=== PATIENT | male | born 1980 | race Caucasian/White ===

== ENCOUNTER 2023-03-20 02:50 | Inpatient (IN) | payer SELFPAY ==
[~2023-03-20] VITALS: Ht 180.3 cm; Wt 129.3 kg
[2023-03-20] VITALS (16 sets, daily range): BP systolic 92–130; BP diastolic 46–79
--- NOTE | 2023-03-20 02:52 | NUR ---
blood sugar checked 355
--- NOTE | 2023-03-20 02:52 | NUR ---
Dr. Garcia examining patient.
--- NOTE | 2023-03-20 02:56 | NUR ---
Patient BIB by ALS from home. C/O Alcohol intoxication x today. Per reported, patient was drinking all day (unknown consuming), At the scence, patient vomiting, tachycardia 134, diaphoretic, Given Zofran 4 mg IV push and NSS Bolus. PMHx: Alcoholic
--- NOTE | 2023-03-20 02:56 | NUR ---
PT RICKI ALS. TAKEN TO BED 4
[2023-03-20] MEDS ORDERED: PANTOPRAZOLE 40 MG INJ VIAL IVP ONE (03:00)
[2023-03-20] MEDS ORDERED: NACL 0.9% 1,000 ML IV ONE (03:00)
[2023-03-20] MEDS ORDERED: OCTREOTIDE ACETATE 100 MCG/ML VIAL IV STA (03:07)
[2023-03-20] MEDS ORDERED: OCTREOTIDE ACETATE 1.25 MG in NACL 0.9% 250 ML IV SCH (03:10)
[2023-03-20] MEDS ORDERED: cefTRIAXone 1,000 MG VIAL ONE (03:15)
[2023-03-20 03:20] LABS: BASOPHILS # (AUTO) 0.1 K/uL (0.00-0.22); BASOPHILS % (AUTO) 0.6 % (0.0-2.0); EOSINOPHILS % (AUTO) 0.1 % (0.0-4.0); HEMOGLOBIN 7.3 g/dL (12.0-18.0); LYMPHOCYTES # (AUTO) 3.2 K/uL (2.0-11.5); LYMPHOCYTES % (AUTO) 21.9 % (20.5-51.1); MEAN CORPUSCULAR HEMOGLOBIN 29 pg (27-31); MEAN CORPUSCULAR HGB CONC 32 g/dL (33-37); MEAN CORPUSCULAR VOLUME 92.3 fL (80-94); MONOCYTES % (AUTO) 6.8 % (1.7-9.3); NEUTROPHILS # (AUTO) 10.2 K/uL (1.8-7.7); NEUTROPHILS % (AUTO) 70.6 % (42.2-75.2); PLATELET COUNT (AUTO) 158 K/uL (140-450); RED BLOOD CELL COUNT(AUTO) 2.49 MIL/uL (4.20-6.10); RED CELL DISTRIBUTION WIDTH 16.7 % (11.6-13.7); WHITE BLOOD COUNT (AUTO) 14.5 K/uL (4.8-10.8)
[2023-03-20] MEDS ORDERED: OCTREOTIDE ACETATE 1000 MCG/5 ML VIAL ONE (03:25)
--- NOTE | 2023-03-20 03:27 | NUR ---
COVID SWAB WALKED TO LAB.
--- NOTE | 2023-03-20 03:45 | NUR ---
Pt said that he doesnt take medications at home
[2023-03-20 03:46] LABS: PROTHROMBIN TIME 15.6 secs (10.8-13.4)
--- NOTE | 2023-03-20 03:48 | NUR ---
X-Ray at bedside.
--- NOTE | 2023-03-20 03:50 | NUR ---
spoke to Dr Lucas for updating the patient information.
--- NOTE | 2023-03-20 03:53 | NUR ---
blood transufsion is started
--- NOTE | 2023-03-20 03:55 | NUR ---
Consent signed per patient agreeing to administration of blood. Blood has been type and crossmatched. Blood sent from blood bank. Information on unit of blood checked against patient wristband at bedside by two nurses. All information matches. Patient or responsible alliance party informed of potential complications associated with blood transfusion. Informed of possible transfusion reaction symptoms. Aware of need to notify nurse at once of itching, shortness of breath, flushing, feeling of impending doom, or other symptoms not previously present. Vital signs taken within 5 minutes prior to initiation of transfusion. RN will remain with patient for first 15 minutes of transfusion at which time vital signs will be re-assessed.
[2023-03-20] MEDS: NACL 0.9% 1,000 ML IV SCH ×2 (04:00→14:13)
[2023-03-20] MEDS ORDERED: NOREPINEPHRINE 4 MG in DEXTROSE 5% 250 ML IV PRN (04:00)
[2023-03-20 04:27] LABS: ALBUMIN 2.1 g/dL (3.4-5.0); ASPARTATE AMINOTRANSFERASE 36 U/L (15-37); CARBON DIOXIDE 17.9 mmol/L (21-32); CHLORIDE 107 mmol/L (98-107); CREATININE 1.1 mg/dL (0.6-1.3); GFR ARICAN-AMERICAN 94 mL/min (>90); LIPASE 75 U/L (73-393); POTASSIUM 3.9 mmol/L (3.5-5.1); SODIUM SERUM 142 mmol/L (136-145); TOTAL BILIRUBIN 1.7 mg/dL (0.0-1.0); UREA NITROGEN, BLOOD 21 mg/dL (7-18)
[2023-03-20 04:32] LABS: GLUCOSE 428 mg/dL (74-106)
--- NOTE | 2023-03-20 04:57 | NUR ---
[facility] Admited to [facility]. Will go to room 2. Belongings list completed. Report to addie.
--- NOTE | 2023-03-20 05:17 | NUR ---
RECEIVED PT. FROM ER AT 0440 AND REPORT GIVEN BY AZAM LO. PT. WIDE AWAKE, ALERT AND DJIBOUTIAN SPEAKING ONLY. ABLE TO MOVE HIMSELF FROM THE GURNEY TO BED. ASSESSMENT DONE. BILATERAL LUNG SOUNDS CLEAR. ON NASAL CANULA 2L WITH O2 SAT 96%. EYES PERRLA. ABDOMEN ROUND AND NON TENDER. ABDOMINAL SOUNDS HYPOACTIVE. RECEIVED PT. FROM ER WITH 1 UNIT PRBC RUNNING 50ML/HR TO IV SITE RIGHT AC 18G AND 1 UNIT PRBC 50ML/HR TO RIGHT WRIST 20G AND SANDOSTATIN DRIP AT 50MCG/HR TO LEFT HAND 22G, INFUSING WELL. SINUS TACHYCARDIA 123-125 ON THE MONITOR. SKIN INTACT. ALL EXTREMITIES MODERATE WEAKNESS. ALL PULSES PALPABLE. PER BRANDS EDITOR DR. GORE ORDERED TO DO A BEDSIDE PROCEDURE, BUT BRANDS EDITOR NOT SURE IF WHAT WILL BE THE PROCEDURE. SENT A MESSAGE TO AND INFORMED HIM THAT PT. IS NOW IN ICU AND ASKED IF WHAT PROCEDURE HE PLAN TO DO. WILL WAIT FOR HIS CALL.PROVIDED PT. WITH SAFE AND QUIET ENVIRONMENT. BEDLOCK AND PLACED BED IN THE LOWEST HEIGHT FOR SAFETY.PT. PT. ABLE TO REPOSITION HIMSELF. PLACED CALL LIGHT WITHIN REACH. NO S/S OF RESPIRATORY DISTRESS AND NO S/S OF PAIN. WILL CONT. TO MONITOR.
--- NOTE | 2023-03-20 07:15 | NUR ---
RECEIVED BEDSIDE REPORT FROM DOUGH MOLDER RNMENDEZ FOR CONTINUITY OF CARE. PT ALERT AND ORIENTED. ROOM AIR, RESPIRATIONS EVEN AND UNLABORED. 20G IV TO R WRIST SALINE LOCK, 18G IV TO RAC SALINE LOCK, AND 22G IV TO L WRIST INFUSING OCTREOTIDE DRIP AT 10 ML/HR AND NS AT 100 ML/HR. ST ON MONITOR. VOIDS FREELY. BED LOCKED AND IN LOWEST POSITION. STANDARD PRECAUTION. CALL LIGHT WITHIN REACH.
[2023-03-20] MEDS ORDERED: BLOOD GLUCOSE MONITORING 1 DEV DEV FS SCH (07:30)
[2023-03-20] MEDS ORDERED: ONDANSETRON 4 MG/2 ML VIAL IVP PRN (07:40)
[2023-03-20] MEDS ORDERED: LORazepam 2 MG/ML VIAL IVP PRN (07:40)
[2023-03-20] MEDS ORDERED: ACETAMINOPHEN 325 MG TAB PO PRN (07:40)
[2023-03-20] MEDS ORDERED: ZOLPIDEM 5 MG TAB PO PRN (07:40)
[2023-03-20] MEDS ORDERED: MAG SULF 2000 MG/WATER PREMIX 50 ML IV PRN (07:40)
[2023-03-20] MEDS ORDERED: DOCUSATE SODIUM 100 MG GELCAP PO PRN (07:40)
[2023-03-20] MEDS ORDERED: POTASSIUM CHLORIDE 10 MEQ TABER PO PRN (07:40)
[2023-03-20] MEDS ORDERED: MORPHINE SULFATE 2 MG/ML SYR IVP PRN (07:40)
[2023-03-20] MEDS ORDERED: DEXTROSE 50% 50 ML SYR IVP PRN (07:45)
--- NOTE | 2023-03-20 07:49 | NUR ---
REPORT GIVEN TO AZAM POWELL FOR CONTINUITY OF CARE.
[2023-03-20] MEDS ORDERED: METOCLOPRAMIDE 10 MG/2 ML INJ VIAL IVP SCH ×2 (08:02→12:00)
--- NOTE | 2023-03-20 08:03 | NUR ---
UTILIZED VOYCE VIETNAMESE INTERPRETATION TO ASSESS PT AND EXPLAIN PLAN OF CARE. NO FURTHER QUESTIONS AT THIS TIME. BIOSOLIDS MANAGEMENT TECHNICIAN ID [id number].
[2023-03-20] MEDS: PANTOPRAZOLE 40 MG INJ VIAL IVP SCH ×2 (08:33→20:56)
[2023-03-20] MEDS: INSULIN LISPRO SLIDING SCALE 100 UNITS/ML VIAL SUBQ PRN ×3 (08:41→18:01)
--- NOTE | 2023-03-20 08:44 | NUR ---
PATIENT HAS BEEN SCREENED AND CATEGORIZED MODERATE NUTRITION RISK. PATIENT WILL BE SEEN WITHIN 3-5 DAYS OF ADMISSION. 03/20/23-03/25/[address] RE[address] BY [address]H QUINONES RD
[2023-03-20 10:34] LABS: HEMATOCRIT 23.7 % (36-52); HEMOGLOBIN 7.8 g/dL (12.0-18.0)
--- NOTE | 2023-03-20 11:00 | NUR ---
FAMILY AT BEDSIDE.
[2023-03-20] MEDS ORDERED: PROPOFOL 200 MG/20 ML VIAL IV ONE (11:31)
[2023-03-20] MEDS ORDERED: NOREPINEPHRINE 4 MG/4 ML VIAL IV ONE (11:31)
[2023-03-20 11:35] LABS: MAGNESIUM 1.3 mg/dL (1.8-2.4); PHOSPHORUS 2.5 mg/dL (2.5-4.9); POTASSIUM 4.6 mmol/L (3.5-5.1)
--- NOTE | 2023-03-20 11:44 | NUR ---
DC PLANNING A CASE OF 43 YEAR OLD MALE PATIENT ADMITTED FOR ACUTE GI BLEED WITH NO PRIMARY HX WITH COMPLAINTS OF NAUSEA,BLOODY EMESIS AND DIARRHEA.ON OCTREOTIDE DRIP.2 UNITS PRBC TRANSFUSED FOR HBG 7.3.PULMO AND GI FOLLOWING.FOR EGD TODAY. DC PLAN - HOME WHEN PATIENT RESPONDS TO TX.CM TO FOLLOW. Addendum: 03/21/23 at 1100 by HERNAN CHARLES CM DC PLANNING EGD DONE 03/20 BUT UNABLE TO FIND THE SOURCE OF BLEEDING DUE TO MULTIPLE LARGE CLOTS PER GI.FOR REPEAT EGD TODAY.CBC PENDING.HAD TOTAL 5 UNITS PRBC.PATIENT IS ALERT AND ORIENTED BUT STILL HAVING BLOODY EMESIS.CM TO FOLLOW.H Addendum: 03/21/23 at 1653 by Tea Meeks RN DC PLANNING: PATIENT HAS AN ORDER TO GO TO HIGHER LEVEL OF CARE FOR IR SERVICE FOR EMBOLIZATION. FAXED TO [facility]. PATIENT HAS SELF PAY AWAITING FOR [employer] DROP COUNT ASSOCIATE TO APPLY FOR MEDICAL . CM TO FOLLOW
[2023-03-20] MEDS: BLOOD GLUCOSE MONITORING 1 DEV DEV FS SCH ×2 (12:21→17:58)
[2023-03-20 12:45] LABS: ANION GAP 14.3 (8-16); CARBON DIOXIDE 20.3 mmol/L (21-32); CREATININE 1.1 mg/dL (0.6-1.3); POTASSIUM 4.6 mmol/L (3.5-5.1)
--- NOTE | 2023-03-20 12:55 | NUR ---
DC PLANNING ASSESSMENT COMPLETE PLEASE REFER TO ASSESSMENT FOR ADDITIONAL DETAILS PT REPORTS DC PLAN IS TO RETURN HOME, WITH FRIEND PROVIDING TRANSPORTATION, WHEN MEDICALLY STABLE. Addendum: 03/20/23 at 1256 by Solomon FARAH Amended: Links added.
--- NOTE | 2023-03-20 13:03 | NUR ---
RECEIVED RETURN PAGE FROM DR. GORE. NOTIFIED OF NEWLY RESULTED HGB OF 7.8. ADVISED TO HOLD PRBC FOR NOW. PHYSICIAN TO SEE PT.
[2023-03-20 14:00] LABS: APPEARANCE,URINE CLEAR (CLEAR); BILIRUBIN,URINE NEGATIVE (NEGATIVE); BLOOD, URINE 1+ (NEGATIVE); COLOR,URINE YELLOW (YELLOW); LEUKOCYTE ESTERASE ,URINE NEGATIVE (NEGATIVE); NITRITE, URINE NEGATIVE (NEGATIVE); UGLUCOSE 2+ (NEGATIVE)
--- NOTE | 2023-03-20 14:03 | NUR ---
UTILIZED VOE INTERPRETATION TO UPDATE PT ON PLAN OF CARE. EXTERNAL RELATIONS DIRECTOR ID [id number].
--- NOTE | 2023-03-20 14:10 | NUR ---
UTILIZED [facility] INTERPRETATION SERVICES TO COMPLETE MEDICATION RECONCILIATION. PT DENIES ANY HOME MEDICATIONS. NO FURTHER QUESTIONS AT THIS TIME.
[2023-03-20 14:14] LABS: BARBITURATE, URINE NEGATIVE ng/ml (NEG <=200); BENZODIAZEPINE, URINE NEGATIVE ng/mL (NEG <=200); CANNABINOID, URINE NEGATIVE ng/mL (NEG <=50); COCAINE, URINE NEGATIVE ng/mL (NEG <=300); OPIATE, URINE NEGATIVE ng/mL (NEG <=2000); PHENCYCLIDINE SCREEN,URINE NEGATIVE ng/mL (NEG <=25)
[2023-03-20 14:19] LABS: WBC,URINE 0-5 /HPF (0-5)
--- NOTE | 2023-03-20 14:22 | NUR ---
PT TRANSPORTED TO GI LAB WITH OR NURSES. Addendum: 03/20/23 at 1628 by Dayan Jackson RN TIME SHOULD BE [id number]
[2023-03-20 15:21] LABS: RED BLOOD CELL COUNT(AUTO) 2.66 MIL/uL (4.20-6.10); WHITE BLOOD COUNT (AUTO) 15.8 K/uL (4.8-10.8)
[2023-03-20 15:22] LABS: HEMATOCRIT 23.9 % (36-52); HEMOGLOBIN 7.7 g/dL (12.0-18.0); LYMPHOCYTES % (AUTO) 14.5 % (20.5-51.1); MEAN CORPUSCULAR HEMOGLOBIN 30 pg (27-31); MEAN CORPUSCULAR HGB CONC 33 g/dL (33-37); MEAN CORPUSCULAR VOLUME 89.9 fL (80-94); NEUTROPHILS % (AUTO) 78.3 % (42.2-75.2); PLATELET COUNT (AUTO) 144 K/uL (140-450); RED CELL DISTRIBUTION WIDTH 15.6 % (11.6-13.7)
[2023-03-20 15:23] LABS: BASOPHILS # (AUTO) 0.1 K/uL (0.00-0.22); BASOPHILS % (AUTO) 0.4 % (0.0-2.0); LYMPHOCYTES # (AUTO) 2.3 K/uL (2.0-11.5); MONOCYTES # (AUTO) 1.1 K/uL (0.8-1.0); MONOCYTES % (AUTO) 6.8 % (1.7-9.3); NEUTROPHILS # (AUTO) 12.4 K/uL (1.8-7.7)
[2023-03-20] MEDS ORDERED: fentaNYL citrate 0.05 MG/ML VIAL ONE (15:43)
[2023-03-20] MEDS ORDERED: MIDAZOLAM 2 MG/2 ML VIAL ONE (15:43)
[2023-03-20] MEDS ORDERED: LIDOCAINE 2% 100 MG/5 ML UJET TP ONE (16:24)
--- NOTE | 2023-03-20 16:56 | NUR ---
PT RETURNED FROM GI LAB WITH NGT AND UNIT PRBC INFUSING. DR. GORE ORDERED TO PLACE NGT TO LOW INTERMITTENT SUCTION AND FLUSH WITH 500 ML NORMAL SALINE Q2H. CONTINUE OCTREOTIDE DRIP AT 10 ML/HR. INFUSE ONE MORE UNIT PRBC WHEN CURRENT UNIT FINISHES.
[2023-03-20] MEDS ORDERED: MIDAZOLAM 2 MG/2 ML VIAL IVP ONE (17:00)
[2023-03-20] MEDS: OCTREOTIDE ACETATE 1.25 MG in NACL 0.9% 250 ML IV SCH (17:11)
--- NOTE | 2023-03-20 19:20 | NUR ---
ENDORSED BEDSIDE REPORT TO PROGRAMMING SPECIALIST AZAM BROOKS FOR CONTINUITY OF CARE
--- NOTE | 2023-03-20 19:25 | NUR ---
TRANSFER OF CARE FROM DAY SHIFT, REPORT RECEIVED FROM Swathi POWELL RN. PATIENT RECEIEVED AWAKE AND ALERT X4; PATIENT SPEAKS FRENCH. PATIENT IS LYING IN BED ON LEFT SIDE. PATIENT HAS 18G IN THE RIGHT AC, AND 22G IN THE LEFT WRIST. PATIENT IS CURRENTLY RECEIVING BLOOD TRANSFUSION, ALSO HAS THE FOLLOWING MEDICATIONS INFUSING: NORMAL SALINE AT 100ML/HR, AND OCTREOTIDE AT 10ML/HR. PATIENT IS ABLE TO AMBULATE WITHOUT ASSISTANCE TO BEDSIDE COMMODE AND IS ABLE TO MAKE NEEDS KNOWN. VITAL SIGNS AT START OF SHIFT ARE FOLLOWS: T = 98.3F, HR =121, R = 28 O2 SAT = 98%, AND BP = 101/50. WILL CONTINUE TO MONITOR PATIENT FOR ANY CHANGE IN CONDITION AND NOTIFY MD INDICATED.
--- NOTE | 2023-03-20 20:30 | NUR ---
TRANSFUSION COMPLETE, NO REACTIONS IDENTIFIED. PATIENT DENIES ANY COMPLAINTS VITALS AT COMPLETION OF TRANSFUSION ARE FOLLOWS: T = 98.0F, HR = 119, 02 SAT = 96%, BP 107/59, AND R = 26 ORDER CREATED FOR CBC TO BE DRAWN 2 HOURS POST TRANSFUSION (1471)
[2023-03-20 22:46] LABS: BASOPHILS # (AUTO) 0.1 K/uL (0.00-0.22); BASOPHILS % (AUTO) 0.3 % (0.0-2.0); HEMATOCRIT 24.5 % (36-52); HEMOGLOBIN 8.3 g/dL (12.0-18.0); LYMPHOCYTES # (AUTO) 3.6 K/uL (2.0-11.5); LYMPHOCYTES % (AUTO) 19.3 % (20.5-51.1); MEAN CORPUSCULAR HEMOGLOBIN 29 pg (27-31); MEAN CORPUSCULAR HGB CONC 34 g/dL (33-37); MEAN CORPUSCULAR VOLUME 86.8 fL (80-94); MONOCYTES # (AUTO) 1.7 K/uL (0.8-1.0); NEUTROPHILS # (AUTO) 13.4 K/uL (1.8-7.7); NEUTROPHILS % (AUTO) 71.4 % (42.2-75.2); PLATELET COUNT (AUTO) 113 K/uL (140-450); RED BLOOD CELL COUNT(AUTO) 2.83 MIL/uL (4.20-6.10); RED CELL DISTRIBUTION WIDTH 14.9 % (11.6-13.7); WHITE BLOOD COUNT (AUTO) 18.8 K/uL (4.8-10.8)
[2023-03-21] VITALS (13 sets, daily range): BP systolic 89–123; BP diastolic 28–69
[2023-03-21] MEDS: BLOOD GLUCOSE MONITORING 1 DEV DEV FS SCH ×5 (00:08→23:52)
[2023-03-21] MEDS: INSULIN LISPRO SLIDING SCALE 100 UNITS/ML VIAL SUBQ PRN ×3 (00:09→11:18)
--- NOTE | 2023-03-21 01:13 | NUR ---
MESSAGE SENT TO ON-CALL MD (DR. GIRON) = POST=TRANSFUSION CBC: 8.3 (PREVIOUS = 7.8), HCT = 24.5 (PREVIOUS 23.7). PATIENT STILL WITH ACTIVE BLEEDING, HAS BLOOD IN BM AND NG TUBE SUCTION, PATIENT ALSO COUGHS AND HAS BLOOD IN SPUTUM, NO VOMITING
--- NOTE | 2023-03-21 01:20 | NUR ---
RECEIVED MESSAGE BACK FROM DR. GIRON, NEW ORDER FOR 1 UNIT PRBC AND INSTRUCTION TO NOTIFY GI (DR. GORE). MESSAGE SENT TO
--- NOTE | 2023-03-21 04:23 | NUR ---
STARTED TRANSFUSION OF 1 UNIT PRBC
--- NOTE | 2023-03-21 04:28 | NUR ---
RECEIVED MESSAGE FROM DR. HA; PROVIDED UPDATE ON PATIENT'S CURRENT VITALS AND INFORMED MD THAT NEW UNIT OF PRBC WAS STARTED.
--- NOTE | 2023-03-21 05:34 | NUR ---
PER DR. HA, CONTINUE TO FLUSH NG TUBE; UPDATE PROVIDER WITH POST TRANSFUSION LAB RESULTS
--- NOTE | 2023-03-21 07:10 | NUR ---
TRANSFER OF CARE TO DAY SHIFT, CARE OF PATIENT ENDORSED TO AZAM SOW.
--- NOTE | 2023-03-21 07:20 | NUR ---
DR FORTE AT [facility] AT THIS TIME Addendum: 03/21/23 at 4523 by Agency 06 AZAM RN ERROR AURELIANO STUDENT AT [facility]
--- NOTE | 2023-03-21 07:38 | NUR ---
RT AT BEDSIDE AT THIS TIME
--- NOTE | 2023-03-21 07:54 | NUR ---
DR GIRON AT BEDSIDE
--- NOTE | 2023-03-21 08:32 | NUR ---
FAMILY AT BEDSIDE AT THIS TIME
[2023-03-21] MEDS: PANTOPRAZOLE 40 MG INJ VIAL IVP SCH ×2 (09:00→20:18)
[2023-03-21] MEDS: NACL 0.9% 1,000 ML IV SCH ×3 (10:34→20:00)
[2023-03-21 11:05] LABS: BASOPHILS # (AUTO) 0.1 K/uL (0.00-0.22); BASOPHILS % (AUTO) 0.4 % (0.0-2.0); HEMATOCRIT 24.5 % (36-52); HEMOGLOBIN 8.4 g/dL (12.0-18.0); LYMPHOCYTES # (AUTO) 2.3 K/uL (2.0-11.5); LYMPHOCYTES % (AUTO) 15.6 % (20.5-51.1); MEAN CORPUSCULAR HEMOGLOBIN 30 pg (27-31); MEAN CORPUSCULAR HGB CONC 34 g/dL (33-37); MEAN CORPUSCULAR VOLUME 87.6 fL (80-94); MONOCYTES # (AUTO) 1.2 K/uL (0.8-1.0); MONOCYTES % (AUTO) 8.3 % (1.7-9.3); NEUTROPHILS # (AUTO) 11.4 K/uL (1.8-7.7); NEUTROPHILS % (AUTO) 75.7 % (42.2-75.2); PLATELET COUNT (AUTO) 89 K/uL (140-450); RED BLOOD CELL COUNT(AUTO) 2.79 MIL/uL (4.20-6.10); RED CELL DISTRIBUTION WIDTH 15.5 % (11.6-13.7)
[2023-03-21 11:20] LABS: ANION GAP 11.9 (8-16); CARBON DIOXIDE 22.4 mmol/L (21-32); CREATININE 0.7 mg/dL (0.6-1.3); POTASSIUM 4.3 mmol/L (3.5-5.1)
--- NOTE | 2023-03-21 11:51 | NUR ---
DR NAM AT BEDSIDE AT THIS TIME
[2023-03-21] MEDS ORDERED: NOREPINEPHRINE 4 MG in DEXTROSE 5% 250 ML IV PRN (12:20)
--- NOTE | 2023-03-21 13:06 | NUR ---
DR GORE AT BEDSIDE AWARE PT PULLED OUT NG TUBE , AWARE OF H/H, NEXT H.H @ 1600, AWARE OF VSS
[2023-03-21] MEDS: OCTREOTIDE ACETATE 1.25 MG in NACL 0.9% 250 ML IV SCH (17:11)
--- NOTE | 2023-03-21 19:10 | NUR ---
TRANSFER OF CARE FROM DAY SHIFT, REPORT RECEIVED FROM AZAM MACIAS. PATIENT RECEIEVED AWAKE AND ALERT X4; PATIENT SPEAKS [place] CITIZEN. PATIENT IS LYING IN BED ON LEFT SIDE. PATIENT HAS 18G IN THE RIGHT AC, AND 22G IN THE LEFT WRIST. HAS THE FOLLOWING MEDICATIONS INFUSING: NORMAL SALINE AT 100ML/HR, AND OCTREOTIDE AT 10ML/HR. PATIENT IS ABLE TO AMBULATE WITHOUT ASSISTANCE TO BEDSIDE COMMODE AND IS ABLE TO MAKE NEEDS KNOWN. VITAL SIGNS AT START OF SHIFT ARE FOLLOWS: T = 99.1F, HR =93, R = 18O2, SAT = 94%, AND BP = 85/37. WILL CONTINUE TO MONITOR PATIENT FOR ANY CHANGE IN CONDITION AND NOTIFY MD INDICATED.
--- NOTE | 2023-03-21 21:40 | NUR ---
RECEIVED PHONE CALL FROM DR. GORE; PROVIDED PATIENT UPDATE WITH VITAL SIGNS. INFORMED MD THAT PATIENT DID NOT HAVE LABS DRAWN AT 1600. PATIENT DOES HAVE AN ORDER FOR AM LABS = WILL SEND MESSAGE TO MD WITH H&H AND PLATELETS RESULTS
[2023-03-22] VITALS (11 sets, daily range): BP systolic 86–116; BP diastolic 29–70
[2023-03-22] MEDS ORDERED: NOREPINEPHRINE 4 MG/4 ML VIAL IV ONE (01:30)
--- NOTE | 2023-03-22 01:45 | NUR ---
PATIENT WITH HYPOTENSION, ADJUSTED BP CUFF AND RECYCLED READING. PATIENT REMAINED HYPOTENSIVE X 3 CYCLES. WILL START LEVOPHED PER MD ORDERS AND CONTINUE TO MONITOR PATIENT. WILL NOTIFY MD OF ANY CRITICAL CONCERNS
[2023-03-22 05:29] LABS: BASOPHILS # (AUTO) 0.1 K/uL (0.00-0.22); BASOPHILS % (AUTO) 0.4 % (0.0-2.0); EOSINOPHILS % (AUTO) 0.2 % (0.0-4.0); HEMATOCRIT 22.3 % (36-52); HEMOGLOBIN 7.4 g/dL (12.0-18.0); LYMPHOCYTES # (AUTO) 2.9 K/uL (2.0-11.5); LYMPHOCYTES % (AUTO) 17.9 % (20.5-51.1); MEAN CORPUSCULAR HEMOGLOBIN 30 pg (27-31); MEAN CORPUSCULAR HGB CONC 33 g/dL (33-37); MEAN CORPUSCULAR VOLUME 90.1 fL (80-94); MONOCYTES # (AUTO) 1.5 K/uL (0.8-1.0); MONOCYTES % (AUTO) 9.1 % (1.7-9.3); NEUTROPHILS # (AUTO) 11.5 K/uL (1.8-7.7); NEUTROPHILS % (AUTO) 72.4 % (42.2-75.2); PLATELET COUNT (AUTO) 118 K/uL (140-450); RED BLOOD CELL COUNT(AUTO) 2.48 MIL/uL (4.20-6.10); RED CELL DISTRIBUTION WIDTH 16.1 % (11.6-13.7); WHITE BLOOD COUNT (AUTO) 15.9 K/uL (4.8-10.8)
[2023-03-22 05:45] LABS: CARBON DIOXIDE 26.4 mmol/L (21-32); CREATININE 0.7 mg/dL (0.6-1.3)
[2023-03-22] MEDS: NACL 0.9% 1,000 ML IV SCH ×3 (06:00→07:46)
--- NOTE | 2023-03-22 06:18 | NUR ---
MESSAGE SENT TO DR. GIRON REGARDING MOST RECENT LABS WBC = 15.9 HGB = 7.4 (PREVIOUS RESULT 8.4) HCT = 22.3 (PREVIOUS RESULT 24.5) PLT = 118 (PREVIOUS RESULT 89) ALSO INFORMED DR. GIRON THAT PATIENT WAS STARTED ON LEVOPHED NEW ORDERS RECEIVED TO GIVE PATIENT 1L BOLUS OF NS.
--- NOTE | 2023-03-22 06:18 | NUR ---
MESSAGE SENT TO DR. GORE REGARDING MOST RECENT LABS WBC = 15.9 HGB = 7.4 (PREVIOUS RESULT 8.4) HCT = 22.3 (PREVIOUS RESULT 24.5) PLT = 118 (PREVIOUS RESULT 89)
[2023-03-22 06:22] LABS: ANION GAP 7.8 (8-16); POTASSIUM 4.2 mmol/L (3.5-5.1)
[2023-03-22] MEDS ORDERED: NACL 0.9% 1,000 ML IV SCH (06:40)
[2023-03-22] MEDS: BLOOD GLUCOSE MONITORING 1 DEV DEV FS SCH ×3 (06:53→17:32)
--- NOTE | 2023-03-22 07:22 | NUR ---
TRANSFER OF CARE TO DAY SHIFT, CARE OF PATIENT ENDORSED TO MIRTHA
[2023-03-22] MEDS: PANTOPRAZOLE 40 MG INJ VIAL IVP SCH ×2 (09:16→21:50)
--- NOTE | 2023-03-22 11:41 | NUR ---
Received patient in the AM, afebrile, pallor, no signs of active bleeding, patient currently on levophed and remains independent, orders to transfuse patient with one unit PRBC. 1125 patient was taken off unit with GI team for endoscopy started one unit of blood. Verified with AZAM healy at bedside Blood compatibility.
[2023-03-22] MEDS ORDERED: PROPOFOL 200 MG/20 ML VIAL IV ONE ×2 (11:50)
[2023-03-22 19:00] LABS: BASOPHILS % (AUTO) 0.4 % (0.0-2.0); EOSINOPHILS # (AUTO) 0.1 K/uL (0-0.4); EOSINOPHILS % (AUTO) 0.8 % (0.0-4.0); HEMATOCRIT 21.6 % (36-52); HEMOGLOBIN 7.4 g/dL (12.0-18.0); LYMPHOCYTES # (AUTO) 1.9 K/uL (2.0-11.5); LYMPHOCYTES % (AUTO) 20.8 % (20.5-51.1); MEAN CORPUSCULAR HEMOGLOBIN 30 pg (27-31); MEAN CORPUSCULAR HGB CONC 34 g/dL (33-37); MEAN CORPUSCULAR VOLUME 89.1 fL (80-94); MONOCYTES % (AUTO) 10.9 % (1.7-9.3); NEUTROPHILS # (AUTO) 6.2 K/uL (1.8-7.7); NEUTROPHILS % (AUTO) 67.1 % (42.2-75.2); PLATELET COUNT (AUTO) 84 K/uL (140-450); RED BLOOD CELL COUNT(AUTO) 2.43 MIL/uL (4.20-6.10); RED CELL DISTRIBUTION WIDTH 15.4 % (11.6-13.7); WHITE BLOOD COUNT (AUTO) 9.3 K/uL (4.8-10.8)
--- NOTE | 2023-03-22 19:41 | NUR ---
RECEIVED PT. FROM DAY SHIFT RNMIRTHA. PT.WIDE AWAKE, ALERT, ORIENTED AND UZBEK SPEAKING. ASSESSMENT DONE, BILATERAL LUNG SOUNDS CLEAR, EYES PERRLA, ABDOMINAL SOUNDS HYPOACTIVE. ABDOMEN ROUND AND NON TENDER. ON ROOM AIR WITH 02 SAT 93%. NO S/S OF RESPIRATORY DISTRESS. IV TO LEFT WRIST 22G, NO S/S OF INFILTRATION, INFUSING NS AT 100 ML/HR. PT. ABLE TO MOVE IN BED AND SIT UP TO THE SIDE OF THE BED AND ABLE TO USE BEDSIDE COMMODE. PLACE CALL LIGHT WITHIN REACH. MAKE ALL NEEDS KNOWN. NO S/S OF PAIN AND NO EPISODE OF BLEEDING UPON ASSESSMENT. WILL CONT. TO MONITOR.
[2023-03-23] VITALS (12 sets, daily range): BP systolic 84–137; BP diastolic 52–77
[2023-03-23] MEDS: BLOOD GLUCOSE MONITORING 1 DEV DEV FS SCH ×5 (00:30→23:19)
[2023-03-23] MEDS: NACL 0.9% 1,000 ML IV SCH ×3 (03:00→21:05)
[2023-03-23 05:41] LABS: BASOPHILS % (AUTO) 0.4 % (0.0-2.0); EOSINOPHILS # (AUTO) 0.1 K/uL (0-0.4); EOSINOPHILS % (AUTO) 1.4 % (0.0-4.0); HEMATOCRIT 21.4 % (36-52); HEMOGLOBIN 7.3 g/dL (12.0-18.0); LYMPHOCYTES # (AUTO) 1.4 K/uL (2.0-11.5); LYMPHOCYTES % (AUTO) 20.1 % (20.5-51.1); MEAN CORPUSCULAR HEMOGLOBIN 30 pg (27-31); MEAN CORPUSCULAR HGB CONC 34 g/dL (33-37); MEAN CORPUSCULAR VOLUME 89.5 fL (80-94); MONOCYTES # (AUTO) 0.8 K/uL (0.8-1.0); MONOCYTES % (AUTO) 11.3 % (1.7-9.3); NEUTROPHILS # (AUTO) 4.6 K/uL (1.8-7.7); NEUTROPHILS % (AUTO) 66.8 % (42.2-75.2); PLATELET COUNT (AUTO) 74 K/uL (140-450); RED CELL DISTRIBUTION WIDTH 15.3 % (11.6-13.7); WHITE BLOOD COUNT (AUTO) 6.9 K/uL (4.8-10.8)
[2023-03-23 06:19] LABS: ANION GAP 7.6 (8-16); CREATININE 0.6 mg/dL (0.6-1.3); POTASSIUM 3.6 mmol/L (3.5-5.1)
--- NOTE | 2023-03-23 07:59 | NUR ---
received patient from Luna RN, patient awake and alert in bed, moving extremities independently, VS are stable, no overnight events, hgb greater than 7, patient verbalizes feeling better. Encouraged patient to eat more nutrition to increase electrolytes. Will continue to monitor. Possible transfer to tele today.
[2023-03-23] MEDS: PANTOPRAZOLE 40 MG INJ VIAL IVP SCH ×2 (09:00→21:05)
[2023-03-23] MEDS ORDERED: POTASSIUM CHLORIDE 10 MEQ TABER PO SCH (10:00)
[2023-03-23] MEDS ORDERED: CALCIUM GLUC 1 GM/50 mL NS BAG 50 ML IV SCH (10:00)
[2023-03-23] MEDS ORDERED: MAG SULF 2000 MG/WATER PREMIX 50 ML IV SCH (11:30)
[2023-03-23] MEDS: INSULIN LISPRO SLIDING SCALE 100 UNITS/ML VIAL SUBQ PRN (12:27)
[2023-03-23 15:13] LABS: HEMATOCRIT 21.9 % (36-52); HEMOGLOBIN 7.4 g/dL (12.0-18.0)
[2023-03-23] MEDS: FERROUS SULFATE 325 MG TABEC PO SCH (17:00)
[2023-03-23] MEDS: POLYETHYLENE GLYCOL 17 GM/PKT PO SCH (20:56)
[2023-03-24] VITALS: BP 123/75
[2023-03-24 04:00] VITALS: BP 111/70
--- NOTE | 2023-03-24 06:25 | NUR ---
PT REMAINED STABLE OVERNIGHT. AMBULATED TO COMMODE TO HAVE BOWEL MOVEMENT WITHOUT ASSISTANCE. AFEBRILE AND TOOK ALL MEDICATION WITHOUT ISSUE. OBSERVED PT TURN SELF IN BED AT LEAST Q2 HOURS THROUGHOUT SHIFT
[2023-03-24 07:00] LABS: BASOPHILS % (AUTO) 0.4 % (0.0-2.0); EOSINOPHILS # (AUTO) 0.1 K/uL (0-0.4); EOSINOPHILS % (AUTO) 1.5 % (0.0-4.0); HEMATOCRIT 21.6 % (36-52); HEMOGLOBIN 7.2 g/dL (12.0-18.0); LYMPHOCYTES # (AUTO) 1.1 K/uL (2.0-11.5); MEAN CORPUSCULAR HEMOGLOBIN 30 pg (27-31); MEAN CORPUSCULAR HGB CONC 33 g/dL (33-37); MONOCYTES # (AUTO) 0.5 K/uL (0.8-1.0); MONOCYTES % (AUTO) 9.8 % (1.7-9.3); NEUTROPHILS # (AUTO) 3.6 K/uL (1.8-7.7); NEUTROPHILS % (AUTO) 67.3 % (42.2-75.2); PLATELET COUNT (AUTO) 79 K/uL (140-450); WHITE BLOOD COUNT (AUTO) 5.4 K/uL (4.8-10.8)
[2023-03-24 07:16] LABS: ANION GAP 9.4 (8-16); CARBON DIOXIDE 24.2 mmol/L (21-32); CREATININE 0.7 mg/dL (0.6-1.3); POTASSIUM 3.6 mmol/L (3.5-5.1)
[2023-03-24 08:00] VITALS: BP 114/53
[2023-03-24] MEDS: NACL 0.9% 1,000 ML IV SCH (08:00)
[2023-03-24] MEDS: BLOOD GLUCOSE MONITORING 1 DEV DEV FS SCH ×2 (08:00→11:48)
--- NOTE | 2023-03-24 08:00 | NUR ---
PATIENT DOWN-GRADE FROM ICU AFTER BEING TREAT FOR BLOOD EMESIS, BLOOD DIARRHEA WITH MULTIPLE UNITS BLOOD TRANSFUSION FOR ACUTE GI BLOOD, HEMORRHAGE SHOCK WITH NO SIGNIFICANT MEDICAL HISTORY. PATIENT IS COME FROM HOME, ALERT X3 OR 4 (FAROESE SPEAKING), FULL CODE WITH NKA, AMBULATORY W/O ASSIST. PATIENT ON TEL MONITOR FOR SR, ON ROOM AIR; AC&HS 95 FOR 0700; VITAL WITHIN PATIENT'S BASELINE (T-P-R: 98.6-93-18, BP: 114/53, O2 SAT: 95%). CURRENT PATIENT IS ON PO & IV IRON FOR ANEMIA CONDITION BESIDE HYDRATION WITH NS @100ML/HR. WILL CONTINUE TO MONITOR
[2023-03-24] MEDS ORDERED: SODIUM FERRIC GLUCONATE 125 MG in NACL 0.9% 100 ML IV SCH (09:30)
[2023-03-24] MEDS: FERROUS SULFATE 325 MG TABEC PO SCH (09:54)
[2023-03-24] MEDS: PANTOPRAZOLE 40 MG INJ VIAL IVP SCH (09:55)
[2023-03-24] MEDS: POLYETHYLENE GLYCOL 17 GM/PKT PO SCH (09:55)
[2023-03-24] MEDS ORDERED: FER325 PO (10:24)
[2023-03-24] MEDS ORDERED: PANT40EC PO (10:24)
[2023-03-24] MEDS ORDERED: POLY17PD46 PO (10:24)
[2023-03-24 12:00] VITALS: BP 123/74
[2023-03-24 14:26] VITALS: BP 123/74
--- NOTE | 2023-03-24 15:18 | NUR ---
AROUND 1500, NURSE WHEEL PATIENT OUT THE FACILITY AFTER PATIENT SIGN DISCHARGE CONSENT. PRIOR PATIENT SIGN DISCHARGE CONSENT, NURSE GIVE DISCHARGE INSTRUCTION IN [place] TO PATIENT WITH PEER'S HELP. TEL. MONITOR, IV ACCESS, & WRIST BAND REMOVED BEFORE PATIENT BE DISCHARGE. Addendum: 03/24/23 at 1524 by Adenike Lee RN PATIENT WHEEL OUT IN STABLE CONDITION WITH FRIEND/FAMILY PRESENT.
[2023-03-25 08:07] LABS: FOLIC ACID 11.5 ng/mL (>3.0)
== END 2023-03-24 15:00 | disposition home or self-care (01) | DRG 377 ==
LOC: MED 02:50 → MIC 04:00 → MTU 03-24 07:45
PROVIDERS: ADMIT Family Medicine; ATTEND Family Medicine
PROC: 30233N1 Transfusion of Nonautologous Red Blood Cells into Peripheral Vein, Percutaneous Approach (ICD-10-PCS; 2023-03-20)
PROC: 0DJ08ZZ Inspection of Upper Intestinal Tract, Via Natural or Artificial Opening Endoscopic (ICD-10-PCS; 2023-03-20)
PROC: 0DB68ZX Excision of Stomach, Via Natural or Artificial Opening Endoscopic, Diagnostic (ICD-10-PCS; principal; 2023-03-22 11:00)
DX: K92.2 Gastrointestinal hemorrhage, unspecified (principal); E11.10 Type 2 diabetes mellitus with ketoacidosis without coma; I21.A1 Myocardial infarction type 2; R57.8 Other shock; D62 Acute posthemorrhagic anemia; I85.00 Esophageal varices without bleeding; D64.9 Anemia, unspecified; F10.10 Alcohol abuse, uncomplicated; Y90.9 Presence of alcohol in blood, level not specified; Z20.822 Contact with and (suspected) exposure to COVID-19; E66.9 Obesity, unspecified; Z83.3 Family history of diabetes mellitus; Z68.39 Body mass index [BMI] 39.0-39.9, adult
CPT/HCPCS: 36415; 36430; 71045; 80048; 80053; 80305; 81001; 82140; 82607; 82728; 82746; 82803; 82948; 83540; 83605; 83690; 83735; 84100; 84132; 84484; 85018; 85025; 85045; 85610; 85730; 86677; 86886; 86900; 86901; 86920; 87040; 87081; 93005; 96365; 96375; 99291; C9113; G0482; J0610; J0696; J1815; J2250; J2354; J2405; J2704; J2765; J2916; J3010; J3475; J3490; J7030; J7060; P9016; Q0092

== ENCOUNTER 2023-05-19 07:34 | Inpatient (IN) | payer MEDICAID ==
[2023-05-19] VITALS (14 sets, daily range): BP systolic 91–118; BP diastolic 53–66; PULSE 23–130; RESP 16–23; TEMP 96.4–99.9; O2SAT 94–100
[~2023-05-19] VITALS: Ht 185.4 cm; Wt 123.8 kg
[~2023-05-19 07:34] MED LIST: FER325 PO; PANT40EC PO; POLY17PD46 PO
--- NOTE | 2023-05-19 07:34 | NUR ---
PLACED IN BED 09 BY [facility]
[2023-05-19] MEDS ORDERED: NACL 0.9% 1,000 ML IV ONE (07:40)
[2023-05-19] MEDS ORDERED: PANTOPRAZOLE 40 MG INJ VIAL IVP ONE (07:40)
[2023-05-19] MEDS ORDERED: ONDANSETRON 4 MG/2 ML VIAL IVP ONE (07:45)
[2023-05-19] MEDS ORDERED: cefTRIAXone 1,000 MG VIAL ONE (07:54)
[2023-05-19 08:15] LABS: BASOPHILS # (AUTO) 0.1 K/uL (0.00-0.22); EOSINOPHILS % (AUTO) 0.2 % (0.0-4.0); HEMATOCRIT 27.2 % (36-52); HEMOGLOBIN 8.8 g/dL (12.0-18.0); LYMPHOCYTES # (AUTO) 1.3 K/uL (2.0-11.5); LYMPHOCYTES % (AUTO) 14.7 % (20.5-51.1); MEAN CORPUSCULAR HEMOGLOBIN 27 pg (27-31); MEAN CORPUSCULAR HGB CONC 33 g/dL (33-37); MEAN CORPUSCULAR VOLUME 83.5 fL (80-94); MONOCYTES # (AUTO) 0.3 K/uL (0.8-1.0); MONOCYTES % (AUTO) 3.5 % (1.7-9.3); NEUTROPHILS # (AUTO) 7.4 K/uL (1.8-7.7); NEUTROPHILS % (AUTO) 80.6 % (42.2-75.2); PLATELET COUNT (AUTO) 166 K/uL (140-450); RED BLOOD CELL COUNT(AUTO) 3.25 MIL/uL (4.20-6.10); RED CELL DISTRIBUTION WIDTH 16.5 % (11.6-13.7); WHITE BLOOD COUNT (AUTO) 9.2 K/uL (4.8-10.8)
[2023-05-19] MEDS ORDERED: NACL 0.9% 500 ML IV ONE (08:30)
[2023-05-19 08:34] LABS: PROTHROMBIN TIME 12.9 secs (10.8-13.4)
[2023-05-19 08:36] LABS: ALBUMIN 2.6 g/dL (3.4-5.0); CARBON DIOXIDE 22.8 mmol/L (21-32); CREATININE 0.8 mg/dL (0.6-1.3); POTASSIUM 3.8 mmol/L (3.5-5.1); TOTAL BILIRUBIN 0.5 mg/dL (0.0-1.0)
[2023-05-19 09:23] LABS: APPEARANCE,URINE CLEAR (CLEAR); BILIRUBIN,URINE NEGATIVE (NEGATIVE); BLOOD, URINE NEGATIVE (NEGATIVE); COLOR,URINE YELLOW (YELLOW); LEUKOCYTE ESTERASE ,URINE NEGATIVE (NEGATIVE); NITRITE, URINE NEGATIVE (NEGATIVE); UGLUCOSE NEGATIVE (NEGATIVE)
[2023-05-19 09:33] LABS: BARBITURATE, URINE NEGATIVE ng/ml (NEG <=200); BENZODIAZEPINE, URINE NEGATIVE ng/mL (NEG <=200); CANNABINOID, URINE NEGATIVE ng/mL (NEG <=50); COCAINE, URINE NEGATIVE ng/mL (NEG <=300); OPIATE, URINE NEGATIVE ng/mL (NEG <=2000); PHENCYCLIDINE SCREEN,URINE NEGATIVE ng/mL (NEG <=25)
--- NOTE | 2023-05-19 11:00 | NUR ---
started 1 unit PRBC per MD order.
--- NOTE | 2023-05-19 12:00 | NUR ---
Patient will be admitted to care of DR GRAY. Admited to TELEMETRY. Will go to room 119B. Belongings list completed. Report to AKHIL RN.
[2023-05-19] MEDS ORDERED: diphenhydrAMINE 50 MG/ML VIAL ONE (12:35)
[2023-05-19] MEDS ORDERED: MIDAZOLAM 5 MG/5 ML VIAL ONE (12:35)
[2023-05-19] MEDS ORDERED: fentaNYL citrate 0.05 MG/ML VIAL ONE (12:35)
--- NOTE | 2023-05-19 13:00 | NUR ---
PT ARRIVED TO UNIT FROM ER VIA GURNEY AT 1230. WILL BE GOING STRAIGHT TO OR. RECEIVED REPORT FROM MST NURSE.
[2023-05-19] MEDS ORDERED: MIDAZOLAM 2 MG/2 ML VIAL IVP ONE (13:45)
[2023-05-19] MEDS ORDERED: fentaNYL citrate 0.05 MG/ML VIAL IVP ONE (13:45)
[2023-05-19] MEDS ORDERED: diphenhydrAMINE 50 MG/ML VIAL IVP ONE (13:45)
[2023-05-19] MEDS ORDERED: SIMETHICONE 40 MG/0.6 ML ONE (13:55)
[2023-05-19] MEDS ORDERED: EPINEPHrine PFS 0.1 MG/ML SYR IVP ONE (13:55)
--- NOTE | 2023-05-19 14:00 | NUR ---
Pt. arrived in ICU via bed from O.R. After endoscopy done. Pt. is easily aroused by lethargic after medications given in O.R. 8 mg Versed, and 100 mcg Fentanyl. Pt. transferred to ICU bed with full assistance. Pt. with blood transfusion in progress and almost completed. IV site to Right A/C intact 20 G, IV site to Left A/C 18 G saline lock now. Pt. placed immediately on heart monitor and initial vital signs taken with Hr. 130, RR 16, BP 95/56. Pt. with no acute distress. NO active GI bleed now. Pt. denies any pain or discomfort. Will cont. to closely monitor this pt.
--- NOTE | 2023-05-19 14:20 | NUR ---
[id number] Unit of blood that pt. came from O.R. done infusing with no diff. IV lined started to flush with NS. Pt. with no adverse reaction to blood transfusion, no sx of urticaria, no c/o itching, hemodynamically stable. Pt. without any complaints of pain or discomfort.
--- NOTE | 2023-05-19 16:00 | NUR ---
Pt. awake and alert. NO distress. Denies pain or discomfort. Pt. with no active GI bleed noted. Denies nausea and vomiting. Pt. resting in bed with no complaints. ECG with NSR with no ectopy. Stable VS. Will cont. to monitor.
[2023-05-19] MEDS ORDERED: OCTREOTIDE ACETATE 1.25 MG in NACL 0.9% 250 ML IV SCH (16:10)
[2023-05-19] MEDS: OCTREOTIDE ACETATE 1.25 MG in NACL 0.9% 250 ML IV SCH (16:28)
[2023-05-19] MEDS: PANTOPRAZOLE 80 MG in NACL 0.9% 100 ML IV SCH (16:30)
--- NOTE | 2023-05-19 16:30 | NUR ---
IV Protonix and Sandostatin started to infuse via IV with no diff.. Pt. with no change in status. He denies pain / discomfort. NO active GI bleed. Pt. denies nausea/vomiting. Vital signs stable. Pt. resting in bed with no acute distress.
--- NOTE | 2023-05-19 17:45 | NUR ---
Pt. used bedside commode for bowel movement. Pt. with loose stool noted - black tarry stool. NO radha red blood noted. Pt. stable with no drop in BP. No orthostatic drop in blood pressure noted. Pt. with no acute distress. No active upper GI bleed noted. Pt. returned to bed with no acute distress. Pt. is currently NPO but he is asking for food because he "is hungry." Pt. was instructed on being NPO and reason. He verbalized understanding. He denies any pain or discomfort. Will cont. to closely monitor pt.
[2023-05-19] MEDS: LACTATED RINGERS 1,000 ML IV SCH (18:51)
--- NOTE | 2023-05-19 19:15 | NUR ---
Report given to warehouse supervisor 3rd shift RN February. Pt. Awake and alert. No sob. NO acute distress. Denies any pain. NO active GI bleeding or vomiting. Pt. resting quietly in bed with no difficulties. IV fluid infusing with no difficulty.
[2023-05-20] VITALS (11 sets, daily range): BP systolic 90–119; BP diastolic 49–75; PULSE 83–123; RESP 17–20; TEMP 98.4–99.2; O2SAT 93–99
[2023-05-20] MEDS: PANTOPRAZOLE 80 MG in NACL 0.9% 100 ML IV SCH ×2 (02:57→11:36)
[2023-05-20 05:25] LABS: BASOPHILS % (AUTO) 0.6 % (0.0-2.0); EOSINOPHILS % (AUTO) 0.6 % (0.0-4.0); HEMATOCRIT 20.9 % (36-52); LYMPHOCYTES # (AUTO) 2.1 K/uL (2.0-11.5); MEAN CORPUSCULAR HEMOGLOBIN 28 pg (27-31); MEAN CORPUSCULAR HGB CONC 34 g/dL (33-37); MEAN CORPUSCULAR VOLUME 83.4 fL (80-94); MONOCYTES # (AUTO) 0.6 K/uL (0.8-1.0); MONOCYTES % (AUTO) 7.9 % (1.7-9.3); NEUTROPHILS # (AUTO) 5.2 K/uL (1.8-7.7); NEUTROPHILS % (AUTO) 64.9 % (42.2-75.2); PLATELET COUNT (AUTO) 101 K/uL (140-450); RED BLOOD CELL COUNT(AUTO) 2.51 MIL/uL (4.20-6.10)
[2023-05-20] MEDS: LACTATED RINGERS 1,000 ML IV SCH (05:38)
[2023-05-20 06:11] LABS: ANION GAP 11.5 (8-16); CARBON DIOXIDE 24.6 mmol/L (21-32); CREATININE 0.7 mg/dL (0.6-1.3); POTASSIUM 4.1 mmol/L (3.5-5.1)
--- NOTE | 2023-05-20 07:15 | NUR ---
RECEIVED REPORT FROM ICU CAMP MAINTENANCE SUPERVISOR NURSE FOR CONTINUITY OF CARE. PT STABLE AT THIS TIME RESTING IN BED. PT IS A&OX4, SKIN INTACT AND IS ABLE TO AMBULATED ON WON. PT HAS AN IV IN HIS RAC 20G AND LAC 18G. PT IS RUNNING LR AT 100ML/HR, PROTONIX AND SANDOSTATIN. ALL SAFETY MEASURES IN PLACE AND CONTINUATION OF MONITORING IN PROGRESS.
--- NOTE | 2023-05-20 07:15 | NUR ---
Patient transfered to [facility] in stable condition; pt. had 1 moderate black tarry BM with no bright red hematemesis or melena. SR to ST on the scoope. VSS. Denies pain or SOB. Kept NPO except for ice chips. Report given to AZAM trinidad with all questions answered.
--- NOTE | 2023-05-20 08:47 | NUR ---
PATIENT HAS BEEN SCREENED AND CATEGORIZED HIGH NUTRITION RISK. PATIENT WILL BE SEEN WITHIN 1-2 DAYS OF ADMISSION. 05/20/23-05/21/23 [facility]NS REFERRAL RECEIVED FOR UNINTENTIONAL WEIGHT LOSS AND DECREASED APPETITE ON 05/20/23. FRANKIE PEARCE RD
[2023-05-20] MEDS ORDERED: OCTREOTIDE ACETATE 100 MCG/ML VIAL IV SCH ×2 (09:00)
[2023-05-20] MEDS ORDERED: PANTOPRAZOLE 40 MG INJ VIAL IVP SCH (09:00)
--- NOTE | 2023-05-20 10:21 | NUR ---
NOTIFIED DR THAT PTS HGB IS 7.[address] GAVE NO NEW ORDERS.
--- NOTE | 2023-05-20 11:37 | NUR ---
MEDICATION PROTONIX WOULD NOT SCAN THIS IS WHY I HAD TO MANUALLY DOCUMENT IT. CALLED PHARMACY AND CLOUD ADMINISTRATOR SAID TO GO AHEAD AND JUST MANUALLY INPUT IT AND WRITE A NOTE. THEY ARE AWARE OF PROBLEM WITH IV MED BARCODES.
--- NOTE | 2023-05-20 14:00 | NUR ---
LAB ASKED IF IT WAS OKAY TO DRAW AN H&H AT THIS TIME SINCE THE TRANSFUSION WAS RUNNING AND I SAID NO AND I WOULD CALL THEM WHEN IT IS DONE.
--- NOTE | 2023-05-20 14:08 | NUR ---
DC PLANNIN YRS OLD MALE PATIENT WAS ADMITTED FROM HOME WITH A DX OF HEMATEMESIS. PATIENT HAS A HX OF ALCOHOL ABUSE AND LIVER CIRRHOSIS. SEEN BY DR LORA MCGARRY PERFORMED EGD. ADMINISTERED IVF AND PROTONIX DRIP. CONSULTED WITH GI AND PULMO. DC PLAN TO GO HOME WHEN STABLE. CM TO FOLLOW. Addendum: 05/21/23 at 1359 by Tea Meeks RN DC PLANNING: PATIENT HAS AN ORDER TO TRANSFER TO [facility] FOR TIPS PROCEDURE. FAXED TO [facility] AND LARON DIANA. CM TO FOLLOW Addendum: 05/21/23 at 1508 by Tea Meeks RN DC PLANNING: CALLED [facility] TRANSFER CENTER SPOKE WITH MARY LEYVA STILL REVIEWING AND WILL CALL BACK . AWAITING FOR VICTORIA DIANA . CM TO FOLLOW Addendum: 05/21/23 at 1705 by Tea Meeks RN DC PLANNING: RECEIVED A CALL FROM [facility] SPOKE WITH MARY STATED THEY ACCEPTED PATIENT AND NEED TRANSFER AGREEMENT TO BE SIGNED . CEO CHAMORRO SIGNED THE TRANSFER BACK AGREEMENT FAXED TO [facility]. SPOKE WITH MARY STATED SHE STILL AWAITING FOR THE DR TO RESPOND. CM PROVIDE THE UNIT NUMBER AND ARRANGED THE TRANSPORT PLACE IT WILL CALL NOTIFIED PATIENT AND PATIENT AGREED. CM TO FOLLOW Addendum: 05/22/23 at 0929 by Tea Meeks RN DC PLANNING: CM CALLED [facility] SPOKE WITH MARY STATED THEIR DR SPOKE WITH DR ALFONSO AND REQUESTED TO ORDER US DUPLEX ABDOMEN COMPLETE. FAXED THE RESULT AND [facility] REQUESTED PEER TO PEER WITH THE ATTENDING . CM PROVIDE DR BELTRAN'S CELL PHONE. DC PLAN AWAITING FOR THE BED NUMBER CM TO FOLLOW Addendum: 05/22/23 at 1206 by Tea Meeks RN DC PLANNING: RECEIVED A CALL FROM [facility] [place] TRANSFER C[facility] SPOKE WITH COLIN STATED STILL WAITING FOR THE OPEN TELE BED, MIGHT BE THIS AFTERNOON. LAVELLE ASKED COLIN IF PROCEDURE WILL BE DONE TODAY TO KEEP PATIENT NPO PER COLIN WILL ASK MD AND CALL US BACK. LAVELLE TO FOLLOW Addendum: 05/22/23 at 1738 by Tea Meeks RN DC PLANNING RECEIVED A CALL FROM [facility] MAIKEL WITH COLIN STATED PT CAN GO TO ROOM [id number] # TO GIVE REPORT [phone] EXT [phone] ARRANGED TRANSPORT WITH [facility] PASTEURIZER TIME WILL BE 7:30 PM NOTIFIED SAMANTHA REYES.
--- NOTE | 2023-05-20 14:22 | NUR ---
05/20/23 RD INITIAL ASSESSMENT COMPLETED PLEASE REFER TO NUTRITION ASSESSMENT UNDER CARE ACTIVITY FOR ESTIMATED NUTRITIONAL NEEDS. 1. CONTINUE CLEAR LIQUID DIET TOLERATED AND ADVANCE TO REGULAR DIET ONCE MEDICALLY APPROPRIATE. 2. RD TO FOLLOW-UP 3-5 DAYS, MODERATE RISK FRANKIE PEARCE, RD
[2023-05-20] MEDS: OCTREOTIDE ACETATE 1.25 MG in NACL 0.9% 250 ML IV SCH (16:07)
--- NOTE | 2023-05-20 18:30 | NUR ---
CALLED LAB AND STATED THAT THEY COULD COME DRAW THE H&H
[2023-05-20 19:30] LABS: HEMATOCRIT 21.4 % (36-52); HEMOGLOBIN 7.1 g/dL (12.0-18.0)
--- NOTE | 2023-05-20 19:30 | NUR ---
RECEIVED REPORT FROM DAY SHIFT NURSE EWELINA FOR CONTINUITY OF CARE. PATIENT IS A&O X4, BENGALI. PATIENT IS ON ROOM AIR. BREATHING IS NORMAL WITH SYMMETRICAL RISE AND FALL OF CHEST. IV IS A 20G RAC, AND A 18G LAC; NO FLUIDS RUNNING (SALINE LOCKED). PATIENT IS SLEEPING SEMI-FOWLERS IN BED. BED IS IN LOWEST POSITION, WHEELS LOCKED, CALL LIGHT IN PLACE. WILL CONTINUE TO OBSERVE PATIENT.
--- NOTE | 2023-05-20 19:52 | NUR ---
ENDORSED PT TO REFRIGERATION SERVICE TECHNICIAN NURSE FOR CONTINUITY OF CARE. PT STABLE AT THIS TIME.
[2023-05-21] VITALS: BP 101/61; PULSE 83; PULSE 86; RESP 18; TEMP 98.2; O2SAT 93
--- NOTE | 2023-05-21 01:30 | NUR ---
LOOKED IN ON PATIENT. PATIENT WAS SLEEPING, BREATHING NORMAL WITH SYMMETRICAL RISE AND FALL OF CHEST. WILL CONTINUE TO OBSERVE PATIENT.
[2023-05-21 04:00] VITALS: BP 104/63; PULSE 78; PULSE 86; RESP 18; TEMP 98.6; O2SAT 96
--- NOTE | 2023-05-21 04:00 | NUR ---
PATIENT HAS SLEPT THROUGHOUT THE NIGHT. BREATHING IS NORMAL WITH SYMMETRICAL RISE AND FALL OF CHEST. WILL CONTINUE TO OBSERVE PATIENT.
[2023-05-21 07:08] LABS: BASOPHILS % (AUTO) 0.5 % (0.0-2.0); EOSINOPHILS # (AUTO) 0.1 K/uL (0-0.4); LYMPHOCYTES # (AUTO) 1.5 K/uL (2.0-11.5); LYMPHOCYTES % (AUTO) 30.7 % (20.5-51.1); MEAN CORPUSCULAR HEMOGLOBIN 28 pg (27-31); MEAN CORPUSCULAR HGB CONC 33 g/dL (33-37); MEAN CORPUSCULAR VOLUME 83.9 fL (80-94); MONOCYTES # (AUTO) 0.4 K/uL (0.8-1.0); MONOCYTES % (AUTO) 7.5 % (1.7-9.3); NEUTROPHILS % (AUTO) 59.3 % (42.2-75.2); PLATELET COUNT (AUTO) 81 K/uL (140-450); RED BLOOD CELL COUNT(AUTO) 2.34 MIL/uL (4.20-6.10); RED CELL DISTRIBUTION WIDTH 16.3 % (11.6-13.7)
--- NOTE | 2023-05-21 07:20 | NUR ---
RECEIVED REPORT FROM DRAMA CRITIC NURSE FOR CONTINUITY OF CARE. PT STABLE AT THIS TIME.
--- NOTE | 2023-05-21 07:53 | NUR ---
ENDORSED TO DAY SHIFT NURSE EWELINA FOR CONTINUITY OF CARE. PATIENT IS STABLE.
[2023-05-21 08:00] VITALS: BP 123/66; PULSE 82; PULSE 88; RESP 18; TEMP 98.7; O2SAT 99
[2023-05-21 08:06] LABS: ANION GAP 12.3 (8-16); CARBON DIOXIDE 24.4 mmol/L (21-32); CREATININE 0.7 mg/dL (0.6-1.3); HEMATOCRIT 19.6 % (36-52); HEMOGLOBIN 6.5 g/dL (12.0-18.0); POTASSIUM 3.7 mmol/L (3.5-5.1)
--- NOTE | 2023-05-21 08:20 | NUR ---
RECEIVED A CALL FROM LAB THAT HIS HGB WAS 6.5 AND HCT WAS 19.5. MESSAGED AND HE SAID HE WOULD PLACE ORDERS.
[2023-05-21] MEDS: PANTOPRAZOLE 40 MG TABEC PO SCH (09:11)
[2023-05-21 12:00] VITALS: BP 106/61; PULSE 75; PULSE 76; RESP 20; TEMP 98.9; O2SAT 99
[2023-05-21 16:00] VITALS: BP 120/69; PULSE 74; RESP 18; TEMP 99.9; O2SAT 100
--- NOTE | 2023-05-21 16:19 | NUR ---
Operations Officer Afloat HOLLOW TILE PARTITION ERECTOR conducted a Discharge Planning Assessment with pt. using the Juntinese translation services. Pt. was able to participate and answer all questions. Pt. plans to return to his apt. he shares with his friend. Info on facesheet was confirmed. Pt. does not have a PCP and is medical presumptive. HOLLOW TILE PARTITION ERECTOR will remain available as needed.
--- NOTE | 2023-05-21 18:00 | NUR ---
CAME DRAPERY HEAD FORMER CARLOZ CALLED AND LET ME KNOW THAT [facility] MAY CALL TO GET REPORT ON PATIENT. ALSO LET ME KNOW THAT PT WILL BE GOING THERE FOR T.I.P.S. PROCEDURE TONIGHT OR TOMORROW. PT WOULD ALSO WILL HAVE THE PROCEDURE AND COME BACK HERE. PT IS NPO AT THIS TIME.
[2023-05-21 18:28] LABS: HEMATOCRIT 21.7 % (36-52); HEMOGLOBIN 7.2 g/dL (12.0-18.0)
--- NOTE | 2023-05-21 19:30 | NUR ---
RECEIVED REPORT FROM DAY SHIFT NURSE EWELINA FOR CONTINUITY OF CARE. PATIENT IS A&O X4, UKRAINIAN. PATIENT IS ON ROOM AIR. BREATHING IS NORMAL WITH SYMMETRICAL RISE AND FALL OF CHEST. IV IS A 20G RAC, AND A 18G LAC; NO FLUIDS RUNNING (SALINE LOCKED). PATIENT IS CURRENTLY NPO EXCEPT MEDS, AND IS PENDING TRANSFER TO [facility] FOR TIPS PROCEDURE; AND THEN PATIENT WILL RETURN TO THIS FACILITY. PATIENT IS SLEEPING SEMI-FOWLERS IN BED. BED IS IN LOWEST POSITION, WHEELS LOCKED, CALL LIGHT IN PLACE. WILL CONTINUE TO OBSERVE PATIENT.
--- NOTE | 2023-05-21 19:31 | NUR ---
ENDORSED PT TO TONGER NURSE FOR CONTINUITY OF CARE. PT STABLE AT THIS TIME.
[2023-05-21 20:00] VITALS: BP 116/64; PULSE 77; PULSE 84; RESP 18; RESP 20; TEMP 100; O2SAT 95
[2023-05-21 20:26] LABS: HEMATOCRIT 21.2 % (36-52); HEMOGLOBIN 7.1 g/dL (12.0-18.0)
[2023-05-22] VITALS: BP 105/58; PULSE 77; PULSE 80; RESP 18; TEMP 99.3; O2SAT 94
--- NOTE | 2023-05-22 01:00 | NUR ---
LOOKED IN ON PATIENT. PATIENT SLEEPING. BREATHING IS NORMAL WITH SYMMETRICAL RISE AND FALL OF CHEST. WILL CONTINUE TO OBSERVE PATIENT.
[2023-05-22 04:00] VITALS: BP 95/50; PULSE 72; PULSE 77; RESP 18; TEMP 98.7; O2SAT 96
[2023-05-22 05:32] LABS: BASOPHILS % (AUTO) 0.7 % (0.0-2.0); EOSINOPHILS # (AUTO) 0.1 K/uL (0-0.4); HEMATOCRIT 20.2 % (36-52); HEMOGLOBIN 6.9 g/dL (12.0-18.0); LYMPHOCYTES % (AUTO) 26.7 % (20.5-51.1); MEAN CORPUSCULAR HEMOGLOBIN 28 pg (27-31); MEAN CORPUSCULAR HGB CONC 34 g/dL (33-37); MEAN CORPUSCULAR VOLUME 82.4 fL (80-94); MONOCYTES # (AUTO) 0.3 K/uL (0.8-1.0); MONOCYTES % (AUTO) 7.5 % (1.7-9.3); NEUTROPHILS # (AUTO) 2.3 K/uL (1.8-7.7); NEUTROPHILS % (AUTO) 62.1 % (42.2-75.2); PLATELET COUNT (AUTO) 74 K/uL (140-450); RED BLOOD CELL COUNT(AUTO) 2.45 MIL/uL (4.20-6.10); RED CELL DISTRIBUTION WIDTH 15.7 % (11.6-13.7); WHITE BLOOD COUNT (AUTO) 3.7 K/uL (4.8-10.8)
[2023-05-22 06:02] LABS: ANION GAP 13.2 (8-16); CARBON DIOXIDE 23.3 mmol/L (21-32); CREATININE 0.6 mg/dL (0.6-1.3); POTASSIUM 3.5 mmol/L (3.5-5.1)
--- NOTE | 2023-05-22 07:08 | NUR ---
ASSUMED CONTINUITY OF CARE. INITIAL ASSESSMENT DONE. NO C/O N/V. NO C/O PAIN. KEEP COMFORTABLE ON BED. EXPLAINED USE OF CALL LIGHT/BED/TV/BATHROOM. VERBALIZED UNDERSTANDING. CALL LIGHT WITHIN REACH.
--- NOTE | 2023-05-22 07:26 | NUR ---
ENDORSE TO DAY SHIFT NURSE JARRETT FOR CONTINUITY OF CARE. PATIENT IS STABLE.
[2023-05-22 08:00] VITALS: BP 107/67; PULSE 77; PULSE 79; RESP 20; TEMP 98.8; O2SAT 100
--- NOTE | 2023-05-22 09:03 | NUR ---
PAGED DR. BELTRAN REGARDING PT. HGB 6.9, HCT 20.2, PLT 74. DR. BELTRAN PAGED BACK AND ORDERED I UNIT PRBC TRANSFUSION. INFORMED CHARGE NURSE BJ CHÁVEZ.
[2023-05-22] MEDS: PANTOPRAZOLE 40 MG TABEC PO SCH (09:07)
--- NOTE | 2023-05-22 09:10 | NUR ---
[facility] SAW OPERATOR CAME FOR PT. BLOOD DRAW.
[2023-05-22 10:18] LABS: ALBUMIN 2.5 g/dL (3.4-5.0); ANION GAP 12.4 (8-16); CARBON DIOXIDE 24.3 mmol/L (21-32); CREATININE 0.6 mg/dL (0.6-1.3); POTASSIUM 3.7 mmol/L (3.5-5.1); TOTAL BILIRUBIN 0.9 mg/dL (0.0-1.0)
--- NOTE | 2023-05-22 11:15 | NUR ---
INSERTED NEW IV ACCESS ON RIGHT WRIST GAUGE #20 WITH ASSISTANCE FROM CHARGE NURSE BJ CHÁVEZ. REMOVED IV ON RIGHT AC GAUGE #20 AND LEFT AC GAUGE #18 DUE TO LEAKAGE.
--- NOTE | 2023-05-22 11:40 | NUR ---
1 UNIT PRBC TRANFUSION STARTED PER MD ORDER. NO INITIAL REACTION NOTED. WILL MONITOR.
[2023-05-22 11:53] LABS: PROTHROMBIN TIME 13.1 secs (10.8-13.4)
--- NOTE | 2023-05-22 11:55 | NUR ---
VS STABLE. NO C/O PAIN. NO C/O N/V. NO SOB, NOTED. NO REACTION OBSERVED. WILL CONTINUE TO MONITOR.
[2023-05-22 12:00] VITALS: BP 108/63; PULSE 73; PULSE 76; RESP 18; TEMP 98.6; O2SAT 98
--- NOTE | 2023-05-22 13:52 | NUR ---
05/22/23 RD FOLLOW UP COMPLETED PLEASE REFER TO NUTRITION ASSESSMENT UNDER CARE ACTIVITY FOR ESTIMATED NUTRITIONAL NEEDS. 1. RD RECOMMENDS TO CONTINUE NPO DIET TOLERATED AND ONCE MEDICALLY APPROPRIATE ADVANCE TO CLEAR LIQUID AND THEN FULL LIQUID DIET. ONCE PATIENT IS MEDICALLY STABLE TO ADAVCNE FROM LIQUIDS HEPATIC DIET IS RECOMMENDED. 2. RD TO FOLLOW-UP 2-3 DAYS, HIGH RISK FRANKIE PEARCE, RD
[2023-05-22 16:00] VITALS: BP 115/71; PULSE 80; PULSE 83; RESP 20; TEMP 99.1; O2SAT 98
[2023-05-22 18:06] LABS: BASOPHILS % (AUTO) 0.7 % (0.0-2.0); EOSINOPHILS # (AUTO) 0.1 K/uL (0-0.4); EOSINOPHILS % (AUTO) 2.4 % (0.0-4.0); HEMOGLOBIN 7.9 g/dL (12.0-18.0); LYMPHOCYTES # (AUTO) 0.9 K/uL (2.0-11.5); LYMPHOCYTES % (AUTO) 22.9 % (20.5-51.1); MEAN CORPUSCULAR HEMOGLOBIN 28 pg (27-31); MEAN CORPUSCULAR HGB CONC 34 g/dL (33-37); MONOCYTES # (AUTO) 0.3 K/uL (0.8-1.0); MONOCYTES % (AUTO) 8.1 % (1.7-9.3); NEUTROPHILS # (AUTO) 2.7 K/uL (1.8-7.7); NEUTROPHILS % (AUTO) 65.9 % (42.2-75.2); PLATELET COUNT (AUTO) 78 K/uL (140-450); RED CELL DISTRIBUTION WIDTH 15.4 % (11.6-13.7); WHITE BLOOD COUNT (AUTO) 4.1 K/uL (4.8-10.8)
--- NOTE | 2023-05-22 19:00 | NUR ---
D/C TO [facility] [place] [facility]. IN STABLE CONDITION. INFORMED CHARGE NURSE BJ CHÁVEZ.
== END 2023-05-22 19:00 | disposition short-term general hospital (02) | DRG 242 ==
LOC: MED 07:34 → MTU 10:14 → MIC 14:34 → MTU 05-20 07:10
PROVIDERS: ADMIT Family Medicine; ATTEND Family Medicine
PROC: 30233N1 Transfusion of Nonautologous Red Blood Cells into Peripheral Vein, Percutaneous Approach (ICD-10-PCS; 2023-05-19)
PROC: 0W3P8ZZ Control Bleeding in Gastrointestinal Tract, Via Natural or Artificial Opening Endoscopic (ICD-10-PCS; principal; 2023-05-20)
DX: K22.6 Gastro-esophageal laceration-hemorrhage syndrome (principal); I85.11 Secondary esophageal varices with bleeding; R65.10 Systemic inflammatory response syndrome (SIRS) of non-infectious origin without acute organ dysfunction; E44.0 Moderate protein-calorie malnutrition; E87.20 Acidosis, unspecified; K70.30 Alcoholic cirrhosis of liver without ascites; D62 Acute posthemorrhagic anemia; I86.4 Gastric varices; E86.1 Hypovolemia; R73.9 Hyperglycemia, unspecified; Z20.822 Contact with and (suspected) exposure to COVID-19; Z83.3 Family history of diabetes mellitus; Z68.36 Body mass index [BMI] 36.0-36.9, adult
CPT/HCPCS: 36415; 80048; 80053; 80305; 81003; 83036; 83605; 83735; 85018; 85025; 85610; 85730; 86886; 86900; 86901; 86920; 87040; 93975; 96365; 96375; 99291; C9113; G0482; J0171; J0696; J1200; J2250; J2354; J2405; J3010; J7030; P9016; Q0092